=== PATIENT | male | born 1985 | race Caucasian/White ===

== ENCOUNTER → 2021-04-21 00:01 | Outpatient (BNVA) | payer OTHER, SELFPAY | PROVIDERS: Family Provider Nurse Practitioner Family; PCP Registered Nurse; Visit Provider Registered Nurse | DX: R59.1 Generalized enlarged lymph nodes (principal); I10 Essential (primary) hypertension | CPT/HCPCS: 80053; 85025; 86140 ==

== ENCOUNTER → 2021-08-26 11:30 | Outpatient (BNVA) | payer OTHER, SELFPAY | PROVIDERS: Family Provider Nurse Practitioner Family; PCP Registered Nurse; Visit Provider Registered Nurse | DX: I10 Essential (primary) hypertension (principal); E03.9 Hypothyroidism, unspecified; Z22.321 Carrier or suspected carrier of Methicillin susceptible Staphylococcus aureus; K61.1 Rectal abscess | CPT/HCPCS: 80053; 84443; 85007; 85027 ==

== ENCOUNTER → 2023-04-06 10:49 | Outpatient (BNVA) | payer OTHER, SELFPAY | PROVIDERS: Family Provider Nurse Practitioner Family; PCP Registered Nurse; Visit Provider Registered Nurse | DX: I10 Essential (primary) hypertension (principal); F17.210 Nicotine dependence, cigarettes, uncomplicated; R07.9 Chest pain, unspecified | CPT/HCPCS: 80053; 80061; 85025; 86141 ==

== ENCOUNTER 2023-04-08 11:33 | Outpatient (CLI) | payer OTHER, SELFPAY ==
[2023-04-08 12:06] VITALS: BMI 31.1
--- NOTE | 2023-04-08 12:07 | ECG_ITS ---
[facility] Test Date: 2023-04-08 Pat Name: Tenzin Dexter Department: Room: Gender: Male [employer]: Jennifer Michaud : 1985 Requested By: Bev Vogel Order Number: [id number] Ananth MD: Beatriz Zavala M.D. Interpretive Statements NAME OF STUDY: TREADMILL STRESS TEST INDICATION: Chest Pain, PROCEDURE: At the baseline, the patient's blood pressure was 141/79 with a heart rate of 95. The baseline electrocardiogram showed normal sinus rhythm with normal ST-Ts. Poor R wave progression. Possible biatrial enlargement. The patient exercised for 7 minutes and 14 seconds on a standard [place] protocol. Patient attained a maximum heart rate of 164 beats per minute(90% of the maximum predicted heart rate) with a blood pressure at the peak exercise of 240/100 mm Hg. The EKG at the peak exercise revealed no significant changes. Patient did not have any chest pain or any significant cardiac arrhythmias with the exercise During the recovery phase, there were no new changes. Blood pressure at the end of the recovery phase was 144/61 mm Hg with a heart rate of 103 per minute. CONCLUSION: 1. No significant EKG changes with the treadmill exercise 2. No exercise-induced chest pain or cardiac arrhythmia 3. Hypertensive response to exercise 3. Fair exercise tolerance, attained a maximum of 10.2 METs; maximum VO2 of 35.7 Electronically Signed On 04-10-2023 13:26:25 [employer]ILE D[employer]ER by Beatriz Zavala M.D. [email or web address]
[2023-04-08 12:43] VITALS: BP 141/61; PULSE 100
== END 2023-04-08 11:34 | disposition home or self-care (01) ==
PROVIDERS: PCP Registered Nurse; Visit Provider Registered Nurse
DX: R07.9 Chest pain, unspecified (principal)
CPT/HCPCS: 93017

== ENCOUNTER → 2023-12-09 09:08 | Outpatient (BNVA) | payer OTHER, SELFPAY | PROVIDERS: PCP Registered Nurse; Visit Provider Registered Nurse | DX: G57.93 Unspecified mononeuropathy of bilateral lower limbs (principal) | CPT/HCPCS: 80053; 82607; 83036; 85025 ==

== ENCOUNTER → 2024-01-10 07:51 | Outpatient (BNVA) | payer OTHER, SELFPAY | PROVIDERS: PCP Registered Nurse; Visit Provider Podiatrist Foot & Ankle Surgery | DX: M79.671 Pain in right foot; M79.672 Pain in left foot; M72.2 Plantar fascial fibromatosis | CPT/HCPCS: 73630 ==

== ENCOUNTER → 2024-12-13 10:37 | Outpatient (BNVA) | payer OTHER, SELFPAY | PROVIDERS: PCP Registered Nurse; Visit Provider Registered Nurse | DX: I10 Essential (primary) hypertension (principal); R53.83 Other fatigue; E78.5 Hyperlipidemia, unspecified | CPT/HCPCS: 80053; 80061; 84403; 85025 ==

== ENCOUNTER → 2024-12-29 15:02 | Outpatient (BNVA) | payer OTHER, SELFPAY | PROVIDERS: PCP Registered Nurse; Visit Provider Emergency Medicine | DX: R35.0 Frequency of micturition (principal); W57.XXXA Bitten or stung by nonvenomous insect and other nonvenomous arthropods, initial encounter | CPT/HCPCS: 81000; 86618; 86666; 86757 ==

== ENCOUNTER → 2025-02-02 11:23 | Outpatient (BNVA) | payer OTHER, SELFPAY | PROVIDERS: PCP Registered Nurse; Visit Provider Internal Medicine Cardiovascular Disease | DX: R07.9 Chest pain, unspecified (principal); R94.31 Abnormal electrocardiogram [ECG] [EKG] | CPT/HCPCS: 93005 ==

== ENCOUNTER 2025-03-05 11:42 | Outpatient (CLI) | payer OTHER, SELFPAY ==
--- NOTE | 2025-03-05 12:00 | USCV_ITS ---
Tenzin Dexter Age: 39 Gender: M : 1985 Exam Date: 03/05/2025 12:19 Ordering Phys: Beatriz Zavala MD ([email or web address]) Technologist: Exam Location: [facility] [place] Indication: cp htn BP: 135 / 80 HR: 74 Rhythm: Sinus Technical Quality: Adequate MEASUREMENTS (Male / Female) Normal Values 2D ECHO LV Diastolic Diameter PLAX 4.9 cm 4.2 - 5.9 / 3.9 - 5.3 cm IVS Diastolic Thickness 1.1 cm 0.6 - 1.0 / 0.6 - 0.9 cm IVS Systolic Thickness 1.7 cm LVPW Diastolic Thickness 1.5 cm 0.6 - 1.0 / 0.6 - 0.9 cm LVPW Systolic Thickness 2.1 cm LVOT Diameter 2.0 cm LV Ejection Fraction 2D Teich 67.6 % LV Ejection Fraction MOD 4C 62.8 % LV Ejection Fraction MOD 2C 66.2 % LV Ejection Fraction 2C AL 66.5 % LA Diameter 3.9 cm RA Systolic Volume 4C AL 52.1 ml RA Systolic Volume 4C MOD 51.5 ml LA Sys Volume AL 58.4 cm cubed LA Sys Volume Index AL 25.1 cm cubed/m squared Aorta at Sinotubular Diameter 2.9 cm IVC Diameter 1.7 cm M-MODE LA Ao Ratio MM 1.4 AV Cusp Separation MM 2.6 cm DOPPLER AV Peak Velocity 146.0 cm/s LVOT Peak Velocity 112.0 cm/s AV Area Cont Eq vti 3.1 cm squared AV Area Cont Eq pk 2.5 cm squared MV Peak Velocity 109.0 cm/s MV Area PHT 4.8 cm squared Mitral E to A Ratio 1.4 TR Peak Velocity 229.0 cm/s TR Peak Gradient 21.0 mmHg TV Peak E Velocity 126.0 cm/s PV Peak Velocity 133.0 cm/s FINDINGS Left Ventricle Normal left ventricular size and systolic function, EF 66%. . No regional wall motion abnormalities. Mild left ventricular hypertrophy. Right Ventricle Normal right ventricular size and systolic function. Right Atrium Normal right atrial size. Left Atrium Normal left atrial size. IA Septum Normal appearance of the interatrial septum. Mitral Valve No gross abnormalities noted Aortic Valve No gross abnormalities noted Tricuspid Valve No gross abnormalities noted Pulmonic Valve No gross abnormalities noted Pericardium No pericardial effusion. Aorta Normal aortic annulus size. IVC Normal inferior vena cava. CONCLUSIONS Normal left ventricular size and systolic function, EF 66%.No regional wall motion abnormalities. Mild left ventricular hypertrophy No gross valvular abnormalities Normal cardiac chamber sizes. There is no pericardial effusion. There are no intracardiac masses. No similar previous studies are available for comparison Dr Beatriz Zavala MD FACC (Electronically Signed) Final Date: 06 March 2025 13:51 S
== END 2025-03-05 11:43 | disposition home or self-care (01) ==
PROVIDERS: PCP Registered Nurse; Visit Provider Internal Medicine Cardiovascular Disease
DX: R06.09 Other forms of dyspnea (principal); I51.7 Cardiomegaly
CPT/HCPCS: 93306

== ENCOUNTER 2025-04-04 16:27 | Outpatient (CLI) | payer SELFPAY | END 2025-04-04 16:28 | disposition home or self-care (01) | LOC: SLEEP 16:30 | PROVIDERS: PCP Registered Nurse; Referring Provider Registered Nurse; Visit Provider Internal Medicine Pulmonary Disease | DX: G47.33 Obstructive sleep apnea (adult) (pediatric) (principal); I10 Essential (primary) hypertension | CPT/HCPCS: G0399 ==